=== PATIENT | male | born 1970 | race Two or more races ===

== ENCOUNTER 2019-12-12 17:53 | Day surgery (SDC) | payer SELFPAY ==
[~2019-12-12] VITALS: Ht 167.6 cm; Wt 77.2 kg
[2019-12-12] MEDS ORDERED: BUPIVACAINE MPF 0.5% 30 ML VIAL. INJ ONE (18:45)
[2019-12-12] MEDS ORDERED: LIDOCAINE 1% Multi-Dose 20 ML VIAL. INJ ONE (18:45)
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
[2019-12-12] MEDS ORDERED: LIDOCAINE 2% PF 5 ML VIAL. ONE (21:07)
[2019-12-12] MEDS ORDERED: fentaNYL PF VIAL 100 MCG/2 ML VIAL ONE (21:07)
[2019-12-12] MEDS ORDERED: PROPOFOL 10 MG/ML (20ML) VIAL. IV ONE (21:07)
--- NOTE | 2019-12-12 21:20 | RAD ---
EXAM: HAND LEFT 3V 12/12/2019 6:17 PM CLINICAL INDICATION:Left thumb injury COMPARISON:None TECHNIQUE:3 views of the left hand FINDINGS:There is a mildly displaced, predominantly transverse fracture of the thumb proximal phalanx. Suspected intra-articular extension at the interphalangeal joint is seen on lateral view. No other fracture. There is soft tissue swelling and some soft tissue gas along the base of the thumb. No radiopaque foreign body. IMPRESSION:Mildly displaced fracture of the thumb distal phalanx, with an intra-articular component extending to the interphalangeal joint. Soft tissue swelling and soft tissue gas in the thumb without radiopaque foreign body. Electronically signed by: Leslie Yañez MD (12/12/2019 9:17 PM) [id number]
[2019-12-12] MEDS ORDERED: IV RINGERS,LACTATED 1000ML 1,000 ML IV SCH (21:27)
[2019-12-12] MEDS ORDERED: ONDANSETRON PF 4 MG/2 ML VIAL. IV PRN (21:30)
[2019-12-12] MEDS ORDERED: HYDROmorphone 2 MG/ML VIAL IV PRN (21:30)
[2019-12-12] MEDS ORDERED: fentaNYL PF VIAL 100 MCG/2 ML VIAL IV PRN ×2 (21:30)
[2019-12-12] MEDS ORDERED: PROCHLORPERAZINE 10 MG/2 ML VIAL. IV PRN (21:30)
[2019-12-12] MEDS ORDERED: MORPHINE SULFATE 2 MG/ML VIAL. IV PRN (21:30)
[2019-12-12] MEDS ORDERED: ONDANSETRON PF 4 MG/2 ML VIAL. ONE (21:42)
[2019-12-12] MEDS ORDERED: SEVOFLURANE 31 TO 60 MINUTES. IH ONE (21:42)
[2019-12-12] MEDS ORDERED: DEXAMETHASONE SOD PHOS 4 MG/ML VIAL ONE (21:42)
[2019-12-12] MEDS ORDERED: ceFAZolin SODIUM IV Push 1 GM VIAL. IVP ONE ×2 (21:54→22:04)
[2019-12-12] MEDS ORDERED: BUPIVACAINE-EPI 0.5%-1:200000 MPF 30 ML VIAL. INJ ONE ×2 (22:18→23:00)
--- NOTE | 2019-12-12 23:24 | RAD ---
EXAM: Procedural fluoroscopy, left hand. HISTORY: Fracture fixation. FINDINGS: 2 fluoroscopic images of the left hand are obtained. Fluoroscopy time 0.1 minutes. These demonstrate pin fixation of the first proximal phalanx in expected alignment. Refer to the operative report for full detail. Electronically signed by: Mellissa Loya MD (12/12/2019 11:22 PM) [facility]
[2019-12-12] MEDS ORDERED: HYDR-3165 PO (23:31)
[2019-12-12] MEDS ORDERED: CEPH-264 PO (23:31)
--- NOTE | 2019-12-12 23:34 | DISCH ---
DISCHARGE INSTRUCTIONS Condition on Discharge Condition on Discharge: Stable Activity After Discharge Activity Instructions for Disc: Other, see below (No use of left hand) Bathing Instructions: Shower-keep dressing dry Weight Bearing Status after Di: Non weight bearing Diet after Discharge Diet after Discharge: Regular Wound Incision Care Wound/Incision Care: Keep wound elevated, Do not change dressing Contacting the after DC Call your doctor for: Concerns you may have Follow-Up Follow up with: Dr. Oliveira on 12/17/2019 in am ALINE OLIVEIRA MD Dec 12, 2019 23:34
[2019-12-12] MEDS ORDERED: HYDROcodone/APAP 7.5/325MG 1 TAB TABLET PO ONE (23:45)
--- NOTE | 2019-12-12 23:46 | PDOC4 ---
Operative Note Operative Note Date of surgery: 12/12/2019 Preoperative diagnosis: Left thumb crush injury with open proximal phalanx fracture Postoperative diagnosis: Same Operative procedure: Irrigation debridement of open fracture left thumb proximal phalanx with operative reduction internal fixation and wound closure Surgeon: Roxanne Anesthesia: General Estimated blood loss: 50 cc Complications: None Operative indications: Patient injured himself at work where his thumb was crushed by a piece of machinery and he presented to [facility] emergency department with an open thumb proximal phalanx fracture. I had gone over with him the concern for his thumb fracture and infection based on the fact that it is an open fracture and the necessity of undergoing surgery for washing out the fracture and lining it back up and either pinning or plating. We talked about the increased risk of infection the planned antibiotics afterward and restrictions necessary until the wound healed especially as risk of infection is higher before this time and he may experience delayed healing of the bone as well which would require restrictions in terms of grasping and lifting and the possibility of nonhealing or other complications even requiring additional surgery. All his questions were answered he wishes to proceed with surgical evaluation and treatment. Operative text: Patient procedure were identified and verified and after adequate amounts of general anesthesia were administered the left upper extremity was prepped and draped in standard sterile fashion with an upper arm tourniquet. After timeout was performed patient procedure again verified thorough irrigation was carried out of the open wound and devitalized tissue was debrided. No gross contamination was noted and with the thumb proximal phalanx fracture held in reduction under fluoroscopic guidance a total of 3 Tye wires were placed across the fracture site holding it in good reduction and verified reduction under multiple fluoroscopic views. Additional thorough irrigation carried out normal saline solution with bulb syringe and loose closure was accomplished with nylon suture. Xeroform gauze and sterile dressings were placed tourniquet was not inflated throughout the procedure. Patient was returned to recovery room in stable condition having tolerated procedure well ALINE ROCK MD Dec 12, 2019 23:46
[2019-12-13] VITALS: BP 133/74
--- NOTE | 2019-12-15 10:26 | NUR ---
IP: Attempted to contact pt to report negative COIVD test. Phone number is not a working number.
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
== END 2019-12-13 01:00 | disposition home or self-care (01) ==
LOC: ER 17:53 → SURG 20:30 → ER 20:30 → SURG 12-13 01:00
PROVIDERS: ATTEND Orthopaedic Surgery
DX: S62.512A Displaced fracture of proximal phalanx of left thumb, initial encounter for closed fracture (principal); S67.02XA Crushing injury of left thumb, initial encounter; Z20.828 Contact with and (suspected) exposure to other viral communicable diseases; Z79.899 Other long term (current) drug therapy; Z98.890 Other specified postprocedural states; X58.XXXA Exposure to other specified factors, initial encounter; Y93.89 Activity, other specified; Y92.89 Other specified places as the place of occurrence of the external cause; Y99.8 Other external cause status
CPT/HCPCS: 26735; 73130; 87426; A7015; C1713; C9803; J0690; J1100; J2405; J2704; J3490; J7120; U0003; 76000; J3010